=== PATIENT | female | born 1960 | race Two or more races ===

== ENCOUNTER → 2021-12-26 | Emergency (ER) | payer OTHER ==
[~2021-12-26] VITALS: Ht 165.1 cm; Wt 86.2 kg
[~2021-12-26] MED LIST: DECADRON4 MG; DULOXETINE HCL40 MG; FINACEA50 G1; GABAPENTIN100 M2; HYDROCODONE-ACE15 M2; KETO10TA2 PO; NORFLEX100MG PO; SILADRYL12.5 MG/5; TOPIRAMATE25 MG; WELLBUTRIN XL300 MG
== END | disposition home or self-care (01) ==
LOC: ER 18:02
DX: M19.90 Unspecified osteoarthritis, unspecified site (principal); M25.562 Pain in left knee; M72.2 Plantar fascial fibromatosis

== ENCOUNTER 2021-12-29 01:50 | Emergency (ER) | payer OTHER ==
[~2021-12-29] VITALS: Ht 165.1 cm; Wt 83.5 kg
[~2021-12-29 01:50] MED LIST changes: -KETO10TA2 PO; -NORFLEX100MG PO
[2021-12-29] MEDS ORDERED: NORFLEX100MG PO (05:16)
[2021-12-29] MEDS ORDERED: KETO10TA2 PO (05:16)
== END 2021-12-29 05:24 | disposition home or self-care (01) ==
LOC: ER 01:50
DX: M54.50 Low back pain, unspecified (principal); M25.562 Pain in left knee; M25.561 Pain in right knee; M79.672 Pain in left foot